=== PATIENT | female | born 1985 | race Caucasian/White ===

== ENCOUNTER 2021-08-26 19:36 | Emergency (ER) | payer OTHER ==
[~2021-08-26] VITALS: Ht 167.6 cm; Wt 59.0 kg
[2021-08-26] MEDS ORDERED: TUSNEL LIQUID178 ML PO (21:46)
[2021-08-26] MEDS ORDERED: OSEL75CA PO (21:46)
[2021-08-26] MEDS ORDERED: DOLOGEN CAPLET1 EACH PO (21:46)
== END 2021-08-26 22:20 | disposition home or self-care (01) ==
LOC: ER 19:36
DX: J09.X2 Influenza due to identified novel influenza A virus with other respiratory manifestations (principal); Z20.822 Contact with and (suspected) exposure to COVID-19

== ENCOUNTER 2024-05-19 15:16 | Emergency (ER) | payer OTHER ==
[~2024-05-19] VITALS: Ht 167.6 cm; Wt 65.8 kg
[~2024-05-19 15:16] MED LIST: DOLOGEN CAPLET1 EACH PO; OSEL75CA PO; TUSNEL LIQUID178 ML PO
[2024-05-19] MEDS ORDERED: ORPHENADRINE CITRATE 30 MG/ML AMPUL IM ONE (17:30)
[2024-05-19] MEDS ORDERED: KETOROLAC TROMETHAMINE 60 MG VIAL IM ONE ×2 (17:30→17:47)
[2024-05-19] MEDS ORDERED: ORPHENADRINE CITRATE 30 MG/ML AMPUL ONE (17:47)
[2024-05-19] MEDS ORDERED: DICLOFENAC SODI50 MG PO (18:43)
[2024-05-19] MEDS ORDERED: NORFLEX100MG PO (18:43)
== END 2024-05-19 19:08 ==
LOC: ER 15:18
DX: M62.838 Other muscle spasm (principal); M62.830 Muscle spasm of back